=== PATIENT | female | born 1975 | race Caucasian/White ===

== ENCOUNTER 2024-12-29 08:50 | Emergency (ER) | payer OTHER, SELFPAY ==
[2024-12-29 08:58] VITALS: BP 141/90; PULSE 85; TEMP 36.4; O2SAT 100; BMI 35.4
--- OUTSIDE RECORDS SUMMARY | 2024-12-29 09:05 | XMS_ITS | Clinical Summary ---
Author Organization [facility] Address [address] [place] [address] Phone Care Team Providers Care Tandem Operator Name Role Phone Sandoval England DO Primary Care Provider Tameka Padilla LACTATION NURSE-TRUSTEE OF ESTATE Unavailable [phone] Allergies Active AllergyReactionsCriticalityNoted GpiqSwpmuzucUorwiByarGgt40/06/2024 Medications MedicationSigDispense QuantityRefillsLast FilledStart DateEnd DateStatus cholecalciferol (Vitamin D-3) 25 MCG (1000 UT) capsule Take 1 capsule (25 mcg) by mouth once daily.02/03/2023ctive hydroCHLOROthiazide (HYDRODiuril) 25 mg tablet Take 1 tablet (25 mg) by mouth once daily.Active metoprolol tartrate (Lopressor) 25 mg tablet Take 1 tablet (25 mg) by mouth 2 times a day.Active losartan (Cozaar) 100 mg tablet Take 1 tablet (100 mg) by mouth once daily.Active amLODIPine (Norvasc) 10 mg tablet Take by mouth once daily.Active Active Problems ProblemNoted DateDiagnosed DateHTN (hypertension)10/13/2023Malignant melanoma of skin of chest09/23/2023 Cancer Staging: Pathologic:Stage IIIC(pT3b, pN1a, cM0) - Signed by Jaspreet Romero MD on 10/28/2023 Social History Tobacco UseTypesPacks/DayYears UsedDateSmoking Tobacco: Every DayCigarettes Smokeless Tobacco: Never Tobacco Cessation:Ready to Q uit: Not Asked; Counseling Given: Not Answered Alcohol UseStandard Drinks/ErhpYbixawnxHma71 (1 standard drink = 0.6 oz pure alcohol)CommentsUnknownSex and Gender InformationValueDate RecordedSex Assigned at BirthNot on fileLegal MhbZqapcf71/26/2022 3:15 PM ESTGender Identity Not on fileSexual OrientationNot on file Last Filed Vital Signs Vital SignReadingTime TakenCommentsBlood Gissfcjn953/5687410/28/2023 10:32 AM EDT Zpjji348810/28/2023 10:32 AM ZPOJcxgjhumqih28.4 ??C (97.5 ??F)10/28/2023 10:32 AM EDTRespiratory Uxzo663910/28/2023 10:32 AM EDTOxygen Hjkljliaah75%10/28/2023 10:32 AM EDTInhaled Oxygen Concentration--Arbqsn11.2 kg (209 lb 14.4 oz)10/28/2023 10:32 AM QALVsxzln254.3 cm (5' 3.5 )10/13/2023 8:50 AM EDTBody Mass Index36.6 10/13/2023 8:50 AM EDT Plan of Treatment Health MaintenanceDue DateLast DoneCommentsCT Wzxdytwvgjbp01/16/1974FIT-DNA (Cologuard)1973FIT1973HIV Fjayvfuox11/16/1974Lipid Panel1973 Nlqqarahfcuid58/16/1974Skin Cancer Emzgcewbi56/16/1974MMR Vaccines (1 of 1 - Standard series)1974Diabetes Zbyovxbdb92/16/1992Hepatitis C Screening 07/17/1991Hepatitis B Vaccines (1 of 3 - 19+ 3-dose series)1992 Pneumococcal Vaccine (1 of 2 - PCV)1992Cervical Cancer Aajifrulq76/16/1995 HPV/Vvkncb0607/16/1994Pap Smear07/16/19943106Rotemjwxm64Zoster Vaccines (1 of 2)4DTaP/Tdap/Td Vaccines (2 - Td or Tdap)09/29/2023 09/28/2013Yearly Adult Fhzxnfmj39/, 12/10/2021, 12/04/2020, Additional history existsInfluenza Vaccine (#1)511/, 12/03/2021 COVID-19 Vaccine ( season)/, 2Colonoscopy olorectal Cancer Ikqitizkd55/04/2033HIB VaccinesAged OutNo longer eligible based on patient's age to complete this topicHPV VaccinesAged OutNo longer eligible based on patient's age to complete this topicHepatitis A VaccinesAged OutNo longer eligible based on patient's age to complete this topic IPV VaccinesAged OutNo longer eligible based on patient's age to complete this topicMeningococcal VaccineAged OutNo longer eligible based on patient's age to complete this topicRotavirus VaccinesAged OutNo longer eligible based on patient's age to complete this topic Insurance Advance Directives For more information, please contact: [phone] (Available ) * Full Code (Latest Code Status on File) Date ActivatedDate InactivatedComments10/13/2023 8:33 AMQuestionAnswerComments Plan of Care:* Code Status Discussion Not Completed Decision Maker:* Provider Rationale:* Patient condition does not warrant discussion Care Teams Team MemberRelationshipSpecialtyStart DateEnd Date Sandoval England DO [address] [facility] [address] [place] [address] PCP - GeneralFamily Medicine09/15/23 Tameka Padilla APRN-TRUSTEE OF ESTATE [address] [place] [address] Referring PhysicianDermatology09/15/23
--- OUTSIDE RECORDS SUMMARY | 2024-12-29 09:05 | XMS_ITS | Clinical Summary ---
Author Organization [facility] Address [address] [place] [address] Care Team Providers Care Manager Compliance Name Role Phone Sandoval England MD Primary Care Provider [phone] Allergies Active AllergyReactionsCriticalityNoted DateCommentsLatexUnkIlir lerma 12/31/2022 Medications MedicationSigDispense QuantityRefillsLast FilledStart DateEnd DateStatus amLODIPine (Norvasc) 10 MG tablet 12/16/2022ctive hydroCHLOROthiazide (HYDRODiuril) 25 MG tablet 12/16/2022ctive metoprolol tartrate (Lopressor) 25 MG tablet 12/16/2022ctive losartan (Cozaar) 100 MG tablet 12/16/2022ctive cholecalciferol (Vitamin D-3) 25 MCG (1000 UT) capsule 02/03/2023ctive traMADol (Ultram) 50 MG tablet 10/13/2023ctive GaviLyte-G 236 g solution 01/17/2023ctive triamcinolone (Kenalog) 0.1 % ointment Indications:Other atopic dermatitisApply to affected areas, up to twice a day when flared, do not use one the face, groin, or underarms, 30 day supply 454 g 310ctive triamcinolone (Kenalog) 0.1 % cream Indications:Other atopic dermatitisApply to affected areas, up to twice a day when flared, do not use one the face, groin, or underarms, 30 day supply 454 g 1105Active Active Problems ProblemNoted DateDiagnosed DateAcute aopozathpqbqs62/31/2023 Encounters DateTypeDepartmentCare BlgyXjxdlkcayql22/10/2025Telephone [facility] [address] [place] [address] Marika Langford LPN Appointment Request; Care Ndyzngnogwcq51/03/2025External Result Encounter [facility] External Department Unsolicited Rosa Cuba MD 11/03/2024External Result Encounter [facility] External Department Unsolicited Rosa Cuba MD 11/03/2024External Result Encounter [facility] External Department Unsolicited Rosa Cuba MD 11/03/2024External Result Encounter [facility] External Department Unsolicited Rosa Cuba MD 10/21/2024External Result Encounter [facility] External Department Unsolicited Rosa Cuba MD 10/21/2024External Result Encounter [facility] External Department Unsolicited Rosa Cuba MD 10/21/2024External Result Encounter [facility] External Department Unsolicited Rosa Cuba MD from Last 3 Months Family History Medical HistoryRelationNameCommentsLupusDaughterCancerFatherRelationNameStatus NnkbwjfuGnpnlynNqiaf5BoiwzectZtgnxjIxybyzucWxbzoeSfurt Social History Tobacco UseTypesPacks/DayYears UsedDateSmoking Tobacco: Every DayCigarettes Smokeless Tobacco: Never Tobacco Cessation:Ready to Q uit: Not Asked; Counseling Given: Not Answered Comments:Smokes 60 mins after waking up Alcohol UseStandard Drinks/WeekCommentsYes2 (1 standard drink = 0.6 oz pure alcohol)caffeine: 1-2 cups per day coffeeCommentsUnknownSex and Gender InformationValueDate RecordedSex Assigned at BirthNot on fileLegal SexFemale 05/15/2022 7:02 PM EDTGender IdentityNot on fileSexual OrientationNot on file Last Filed Vital Signs Vital SignReadingTime TakenCommentsBlood Vemnenxy646/7012/31/2022 9:26 AM EDT Hualz329912/17/2022 7:26 PM OJJZatkzimpeit60.7 ??C (98 ??F)12/17/2022 7:26 PM EDT Respiratory Rate--Oxygen Awtruflouo20%12/17/2022 7:26 PM EDTInhaled Oxygen Concentration--Ezhkcp91.7 kg (200 lb)01/16/2023 2:24 PM XYTNbcaaw388 cm (5' 3 ) 01/16/2023 2:24 PM ESTBody Mass Index35.43103/18/2022 2:24 PM EST Plan of Treatment DateTypeDepartmentCare Team (Latest Contact Info)Evwnadykhoy13/26/2026 2:20 PM ESTOffice Visit [facility] [address] [place] [address] Tameka Padilla APRN-COLD FOOD PACKER [address] [place] [address] Health MaintenanceDue DateLast DoneCommentsCT Shkdkxvxuclc77/16/1974Colonoscopy 1973Colorectal Cancer Jzrsxilzf78/16/1974FIT-DNA1973FIT1973 FOBT1973 0574Dwzctvyncqcpb81/16/1974Pap Smear1994Cervical Cancer Qejgkvhvb63/16/2004HPV/Ueymbb4807/17/20038676Vnfwgorlk47, 09/12/2017 Influenza Vaccine (#1), 12/03/2021 Procedures Procedure NamePriorityDate/TimeAssociated DiagnosisCommentsCT ABDOMEN PELVIS W IV MCOZRPHU17/03/2025 1:38 PM EDT ACTH, KWJOQFEpoeozl17/03/2025 11:34 AM EDT T4, DVEUFfuyvps89/03/2025 11:34 AM EDT LIZQcfmohf35/03/2025 11:34 AM EDT CORTISOL, VFDDONenouma29/03/2025 11:34 AM EDT COMPREHENSIVE METABOLIC VYZJPFgtkfts89/03/2025 11:34 AM EDT CBC WITH AUTO VSSOFLGRQCJBKaxauyg72/03/2025 11:34 AM EDT ACTH, NOXZRNJxdyxgd19/21/2025 6:24 AM EDT T4, SKDFKNWY15/21/2025 6:24 AM EDT MACNBMC2210/21/2024 6:24 AM EDT CORTISOL, RDOMGNSMD06/21/2025 6:24 AM EDT COMPREHENSIVE METABOLIC TAYDMTBWC12/21/2025 6:24 AM EDT CBC WITH AUTO DJRWMNLMBMJXPMFA74/21/2025 6:24 AM EDT BI MAMMOGRAM SCREENING FVVDICNRQRhcmxvp59/16/2018 12:00 PM EDT Encounter for gynecological examination (general) (routine) without abnormal findings Encounter for screening mammogram for malignant neoplasm of breast from Last 3 Months or Most Recently Relevant to Health Maintenance Results * CT abdomen pelvis w IV contrast (11/03/2024 1:38 PM EDT)Anatomical Region LateralityModalityBody, Pelvis, AbdomenComputed TomographySpecimen (Source) Anatomical Location / LateralityCollection Method / VolumeCollection Time Received Time11/03/2024 1:38 PM EDT Impressions 11/03/2024 1:[address] evidence of progression disease within the chest, abdomen or pelvis. ? Impression dictated by: Yuan Robb Jr., D.OMeng ??11/03/2024 1:46 PM ? Dictation Location: RADIO-PC-22 ? Transcribed By: ? PWS ?11/03/24 1346 ? Dictated By: ?Yuan RobbJr, DO ?11/03/24 1338 ? Signed By: <Electronically signed by Yuan AbreuJr nano, DO in OV> ?11/03/24 1346 Narrative 11/03/2024 1:48 PM T [facility] ?[facility] [place] ?[address] ? [place] [address] ? CT Scan Report ? Signed ? Patient: Hade,Lory A ?MR#: [id number] ?? 8 ? : 1975 ?Acct:[id number] ? Age/Sex: 49 / F ?ADM Date: 11/03/24 ? Loc: XT ?Room: ?Type: REG RCR ?? Attending Dr: Rosa Cuba MD ?? Copies to: Rosa Cuba MD ? Ordering Provider: Rosa Cuba MD ?? Date of Service: 11/03/24 ?? CT/CT abdomen pelvis w con: C43.59 - Malignant melanoma of other part of trunk ?? ([id number]) CT/CT chest w con: C43.59 - Malignant melanoma of other part of trunk ? CT CHEST, ABDOMEN AND PELVIS WITH INTRAVENOUS CONTRAST: ? CLINICAL HISTORY: Restage malignant melanoma of the chest. ? COMPARISON: CTA chest, abdomen and pelvis 12/17/2022 PET/CT 11/14/2023 ? TECHNIQUE: ??TECHNIQUE: ??Spiral images were obtained through the chest, abdomen and pelvis following the administration of IV contrast. ??This CT exam was performed using one or more following dose reduction techniques: Automated exposure control, adjustment of the mA and/or kV according to patient size, or use of iterative reconstruction technique. ? FINDINGS: ? CT chest: ? Mediastinum:Thoracic aorta appears normal in caliber. ??Pulmonary trunk appears nondilated. ??No pericardial effusion or lymphadenopathy. ??The esophagus is grossly unremarkable. ? Lungs:No consolidation pneumothorax pleural effusion or nodule. ??Mild lung scarring. ? Soft tissues/Bones: Postoperative changes involving the left axilla. ??No soft tissue mass. ??Osseous structures demonstrate degenerative change. ??Sclerosis involving the thoracic spine grossly unchanged. ? CT abdomen and pelvis: ? Organs:No enhancing liver lesion. ??Gallbladder has been removed. ??Portal vein spleen pancreas and adrenal glands appear unremarkable. ??No enhancing renal mass or hydronephrosis. ??Abdominal aorta is normal in caliber.[ ? GI: Stomach is grossly unremarkable. ??Small bowel appears nondilated. ??Colonic diverticulosis.[ ? Pelvis:[Fibroid uterus similar to the prior study. ??Urinary bladder is grossly unremarkable.] ? Peritoneum/Retroperitoneum:No free air or free fluid or lymphadenopathy.[ ? Abd wall/Bones:Abdominal wall demonstrates no acute findings. ??Osseous structures demonstrate degenerative change.[ ? CT/CT chest w con ?? Procedure Note Yuan Robb Jr., DO - 11/03/2024 [facility] [place] [address] [place] [address] CT Scan Report Signed Patient: Lory Loving AMR#: [id number] 8 : 1975Acct:[id number] Age/Sex: 49 / FADM Date: 11/03/24 Loc: XT Room:Type: [facility] RCR Attending Dr: Rosa Cuba MD Copies to: Rosa Cuba MD Ordering Provider: Rosa Cuba MD Date of Service: 11/03/24 CT/CT abdomen pelvis w con: C43.59 - Malignant melanoma of other part of trunk ([id number]) CT/CT chest w con: C43.59 - Malignant melanoma of otherpart of trunk CT CHEST, ABDOMEN AND PELVIS WITH INTRAVENOUS CONTRAST: CLINICAL HISTORY: Restage malignant melanoma of the chest. COMPARISON: CTA chest, abdomen and pelvis 12/17/2022 PET/CT 11/14/2023 TECHNIQUE: TECHNIQUE: Spiral images were obtained through the chest,abdomen and pelvis following the administration of IV contrast. This CT exam was performed using oneor more following dose reduction techniques: Automated exposure control, adjustment of the mAand/or kV according to patient size, or use of iterative reconstruction technique. FINDINGS: CT chest: Mediastinum:Thoracic aorta appears normal in caliber. Pulmonary trunkappears nondilated. No pericardial effusion or lymphadenopathy. The esophagus is grosslyunremarkable. Lungs:No consolidation pneumothorax pleural effusion or nodule. Mild lung scarring. Soft tissues/Bones: Postoperative changes involving the left axilla. Nosoft tissue mass. Osseous structures demonstrate degenerative change. Sclerosis involving thethoracic spine grossly unchanged. CT abdomen and pelvis: Organs:No enhancing liver lesion. Gallbladder has been removed. Portalvein spleen pancreas and adrenal glands appear unremarkable. No enhancing renal mass orhydronephrosis. Abdominal aorta is normal in caliber.[ GI: Stomach is grossly unremarkable. Small bowel appears nondilated.Colonic diverticulosis.[ Pelvis:[Fibroid uterus similar to the prior study. Urinary bladder isgrossly unremarkable.] Peritoneum/Retroperitoneum:No free air or free fluid or lymphadenopathy.[ Abd wall/Bones:Abdominal wall demonstrates no acute findings. Osseousstructures demonstrate degenerative change.[ CT/CT chest w con IMPRESSION: No CT evidence of progression disease within the chest, abdomen orpelvis. Impression dictated by: Yuan Robb Jr., D.OMeng 11/03/2024 1:46 PM Dictation Location: [place] [address] Transcribed By: [facility] 11/03/24 1346 Dictated By: Yuan Robb Jr, DO 11/03/24 1338 Signed By: <Electronically signed by Yuan Robb Jr, DO inOV> 11/03/24 1346 Authorizing ProviderResult TypeResult StatusRosa Cuba [facility] [place] PROCED[place]Final Result * (ABNORMAL) CBC auto differential (11/03/2024 11:34 AM EDT) Only the most recent of2 resultswithin the time period is included. ComponentValueRef RangeTest MethodAnalysis TimePerformed AtPathologist Signature WBC7.63.8 - 11.6 [CFU]/mL11/03/2024 11:50 AM [facility] C[facility] UNCORRECTED WHITE BLOOD COUNT7.63.8 - 11.6 10*3/uL11/03/2024 11:50 AM EDT [facility] CtrRBC3.623.60 - 5.00 10*6/uL11/03/2024 11:50 AM [facility] AoeLVNVWKRHNH02.4(L)11.8 - 15.4 g/dL11/03/2024 11:50 AM [facility] RuiEQSVZWROJU36.5(L)34.0 - 46.4 %11/03/2024 11:50 AM [facility] AbaHGE99.780 - 100 fL11/03/2024 11:50 AM [facility] JxuSWZ91.524.7 - 34.3 pg11/03/2024 11:50 AM [facility] VtzUTNT63.032.0 - 35.0 g/dL11/03/2024 11:50 AM [facility] CtrRED CELL DISTRIBUTION WIDTH, RDW12.711.9 - 15.3 % 11/03/2024 11:50 AM [facility] CtrPLATELET FAQLS629(H)150 - 450 10*3/uL11/03/2024 11:50 AM [facility] CtrMEAN PLATELET VOLUME, MPV6.66.3 - 10.7 fL11/03/2024 11:50 AM [facility] NEUTROPHILS, %73.4. %11/03/2024 11:50 AM [facility] LYMPHOCYTES, %18.1. %11/03/2024 11:50 AM [facility] MONOCYTE/MACROPHAGE, %5.5. %11/03/2024 11:50 AM [facility] CtrEOSINOPHILS, %2.7. %11/03/2024 11:50 AM [facility] BASOPHILS, %0.3. %11/03/2024 11:50 AM [facility] CtrNRBC0.00 - 0.5 /100{WBC}11/03/2024 11:50 AM [facility] CtrNEUTROPHILS 5.51.8 - 7.7 10*3/uL11/03/2024 11:50 AM [facility] LYMPHOCYTES1.41.00 - 4.8 10*3/uL11/03/2024 11:50 AM [facility] CtrMONOCYTES0.40.0 - 0.8 10*3/uL11/03/2024 11:50 AM [facility] CtrEOSINOPHILS0.20.0 - 0.45 10*3/uL11/03/2024 11:50 AM EDT [facility] CtrBASOPHILS0.00.0 - 0.2 10*3/uL11/03/2024 11:50 AM [facility] CtrSpecimen (Source)Anatomical Location / LateralityCollection Method / VolumeCollection TimeReceived TimeBlood (Blood) 11/03/2024 11:34 AM EDT11/03/2024 11:41 AM EDT Narrative Authorizing ProviderResult TypeResult StatusRosa Cuba MDLAB BLOOD ORDERABLES Final ResultPerforming OrganizationAddressCity/State/ZIP CodePhone Number [facility] [address] [place] [address], [facility] [address] [place] [address] * ACTH (11/03/2024 11:34 AM EDT) Only the most recent of2 resultswithin the time period is included. ComponentValueRef RangeTest MethodAnalysis TimePerformed AtPathologist Signature ADRENOCORTICOTROPIC HORMONE PL21.37.2 - 63.3 pg/mL11/04/2024 2:36 PM EDT [facility]: ACTH reference interval for samples collected between 7 and 10 AM. Performed at: ??CB - [facility] [address], [place], [place] ??[id number] Ball Mill Operator: Jeff Blevins PhD, Phone: ??[phone] Specimen (Source)Anatomical Location / LateralityCollection Method / Volume Collection TimeReceived PelwCcpyw52/03/2025 11:34 AM EDT11/03/2024 11:40 AM EDT Narrative Authorizing ProviderResult TypeResult StatusRosa Dayo Bereket ROWLEY BLOOD ORDERABLES Final ResultPerforming OrganizationAddressCity/State/ZIP CodePhone Number [address] [address], * TSH (11/03/2024 11:34 AM EDT) Only the most recent of2 resultswithin the time period is included. ComponentValueRef RangeTest MethodAnalysis TimePerformed AtPathologist Signature THYROID STIMULATING HORMONE3.210.45 - 5.33 u[iU]/mL11/03/2024 12:17 PM EDT [facility] CtrSpecimen (Source)Anatomical Location / Laterality Collection Method / VolumeCollection TimeReceived TimeOtherTopography unknown / Tfvmjyt7411/03/2024 11:34 AM EDT11/03/2024 11:41 AM EDT Narrative Authorizing ProviderResult TypeResult StatusRosa Dayo Bereket ROWLEY BLOOD ORDERABLES Final ResultPerforming OrganizationAddressCity/State/ZIP CodePhone Number [address] [address], [facility] [address] [place] [address] * T4, free (11/03/2024 11:34 AM EDT) Only the most recent of2 resultswithin the time period is included. ComponentValueRef RangeTest MethodAnalysis TimePerformed AtPathologist Signature FREE T4 (FREE THYROXINE)0.670.61 - 1.12 ng/dL11/03/2024 12:21 PM EDTFSelect [facility] CtrSpecimen (Source)Anatomical Location / LateralityCollection Method / VolumeCollection TimeReceived TimeOtherTopography unknown / Unknown 11/03/2024 11:34 AM EDT11/03/2024 11:41 AM EDT Narrative Authorizing ProviderResult TypeResult StatusRosa Dayo Bereket ROWLEY BLOOD ORDERABLES Final ResultPerforming OrganizationAddressty/State/ZIP CodePhone Number [address] [address], [facility] [address] [place] [address] * Cortisol (11/03/2024 11:34 AM EDT) Only the most recent of2 resultswithin the time period is included. ComponentValueRef RangeTest MethodAnalysis TimePerformed AtPathologist Signature CUAVLUBR44.8ug/dL11/03/2024 12:14 PM [facility] CtrComment: Reference range: ?AM 6 - 24 ug/dl PM <10 ug/dl [facility] Laboratory gallery assistant and method: CALEB UNICEL DXI, POLYCLONAL ANTIBODY CORTISOL ASSAY. Specimen (Source)Anatomical Location / LateralityCollection Method / Volume Collection TimeReceived TimeOtherTopography unknown / Tjhxymr3311/03/2024 11:34 AM EDT11/03/2024 11:41 AM EDT Narrative Authorizing ProviderResult TypeResult StatusRosa Cuba MDLAB BLOOD ORDERABLES Final ResultPerforming OrganizationAddressCity/State/ZIP CodePhone Number [facility] [address] [place] [address], [facility] [address] [place] [address] * (ABNORMAL) Comprehensive metabolic panel (11/03/2024 11:34 AM EDT) Only the most recent of2 resultswithin the time period is included. ComponentValueRef RangeTest MethodAnalysis TimePerformed AtPathologist Signature Zlarezf462(H)70 - 100 mg/dL11/03/2024 12:04 PM [facility] Comment: Random Glucose Reference Range is dependent on time and content of last meal. Glucose of more than 200 mg/dL in a nonstressed, ambulatory subject supports the diagnosis of Diabetes Mellitus. ADA recommended reference range RPY860 - 25 mg/dL11/03/2024 12:04 PM [facility] CtrCREATININE 0.620.60 - 1.20 mg/dL11/03/2024 12:04 PM [facility] ESTIMATED GFR>60. 12:04 PM [facility] OatNyrvku523 136 - 145 mmol/L11/03/2024 12:04 PM [facility] CtrPotassium, Bld4.03.5 - 5.1 mmol/L11/03/2024 12:04 PM [facility] Qxublore74604 - 107 mmol/L11/03/2024 12:04 PM [facility] Carbon Ugfzsfb16.921.0 - 31.0 mmol/L11/03/2024 12:04 PM [facility] CtrAnion Gap13.16.0 - 15.009 12:04 PM [facility] CtrCalcium9.18.6 - 10.3 mg/dL11/03/2024 12:04 PM [facility] CtrTOTAL PROTEIN7.16.4 - 8.9 g/dL11/03/2024 12:04 PM [facility] CtrALBUMIN LEVEL4.03.5 - 5.7 g/dL11/03/2024 12:04 PM [facility] CtrGLOBULIN3.1g/dL11/03/2024 12:04 PM [facility] CtrALBUMIN/GLOBULIN RATIO1.309 12:04 PM [facility] CtrBILIRUBIN,TOTAL0.40.3 - 1.0 mg/dL11/03/2024 12:04 PM T [facility] CtrASPARTATE AMINO QHYDHSRLNQA4099 - 39 U/L11/03/2024 12:04 PM [facility] CtrALANINE MEJNZRKCOGDKPOUZ802 - 52 U/L 11/03/2024 12:04 PM [facility] CtrALKALINE YXUHYKQZYBH689(H) 34 - 104 U/L11/03/2024 12:04 PM [facility] CtrCREATININE CLR CALC PCOXURGW326.4509 12:04 PM [facility] CtrSpecimen (Source)Anatomical Location / LateralityCollection Method / VolumeCollection TimeReceived TimeOtherTopography unknown / Nrzxqqd9411/03/2024 11:34 AM EDT 11/03/2024 11:41 AM EDT Narrative Authorizing ProviderResult TypeResult StatusRosa Cuba MDLAB BLOOD ORDERABLES Final ResultPerforming OrganizationAddressCity/State/ZIP CodePhone Number [facility] [address] [place] [address], [facility] [address] [place] [address] * Bilateral screening mammogram (09/15/2017 12:00 PM EDT)Anatomical Region LateralityModalityBreastBilateralMammographySpecimen (Source)Anatomical Location / LateralityCollection Method / VolumeCollection TimeReceived Time Narrative 09/15/2017 12:00 PM EDT PERFORMED AT [facility] LOCATION:[id number] Negative Procedure Note Khadar Rincon MD - 09/06/2022 PERFORMED AT [facility] LOCATION:[id number] Negative Authorizing ProviderResult TypeResult StatusBredward Rincon MDIMG BI PROCEDURES Final Result from Last 3 Months or Most Recently Relevant to Health Maintenance Insurance Care Teams Team MemberRelationshipSpecialtyStart DateEnd Date Sandoval England MD [address] [place] [address] PCP - GeneralFamily Ozmippcr30/17/23
--- NOTE | 2024-12-29 09:11 | XR_ITS ---
The [address] [address] Patient Name: OARLIA WHEATLEY MRN: [id number] date: 1975 Sex: F Assigned Patient Location: ER Current Patient Location: ER Accession/Order Number: [id number] Exam Date: 12/29/2024 09:18 Report Date: 12/29/2024 09:41 At the request of: PARISH PALOMARES MD Procedure: XR foot LT min 3V LEFT FOOT - 3 views CLINICAL DATA: Continued dorsal foot pain since dropping a bottle onto foot 2 weeks ago. COMPARISON: None AP, lateral and oblique views were obtained. There is no definite acute fracture or dislocation. A plantar calcaneal spur is seen. There is question of possible osteochondritis dissecans at the medial talar dome on the AP and oblique views. There is mild soft tissue swelling at the dorsum of the foot. XR/XR foot LT min 3V IMPRESSION: NO ACUTE BONY INJURY. Impression dictated by: Shelbie Cordon M.D. 12/29/2024 9:41 AM Dictation Location: [place] [address] Electronically authenticated by: [id number] Y Date: 12/29/2024 09:41
--- NOTE | 2024-12-29 09:12 | ED.GENADUL1 ---
HPI HPI - General Adult General Chief complaint: Extremity Problem, Nontraumatic Stated complaint: LOWER EXTREMITY PAIN Time Seen by Provider: 12/29/24 08:55 Source: patient Mode of arrival: Wheelchair History of Present Illness HPI narrative: 49-year-old female presented to the emergency department for chief complaint of left leg pain. She had dropped a heavy chemical bottle on her left foot about 2 weeks ago and since then her whole legs been hurting. She complains of pain particularly in the left thigh and she is worried about a blood clot. She has never had 1 before and is not on any blood thinners. The right leg is not hurting. Related Data Home Medications ?Medication ?Instructions ?Recorded ?Confirmed amlodipine 10 mg tablet 10 mg PO DAILY 12/29/24 12/29/24 cyclobenzaprine 10 mg tablet 10 mg PO .QHS PRN muscle spasm 12/29/24 12/29/24 hydrochlorothiazide 25 mg tablet 25 mg PO QAM 12/29/24 12/29/24 losartan 100 mg tablet 100 mg PO .QD 12/29/24 12/29/24 meloxicam 15 mg tablet 15 mg PO .QD 12/29/24 12/29/24 metoprolol tartrate 25 mg tablet 25 mg PO .QD 12/29/24 12/29/24 Previous Rx's ?Medication ?Instructions ?Recorded acetaminophen 300 mg-codeine 30 mg 1 tab PO Q6H PRN pain 5 days #20 12/29/24 tablet tabs cephalexin 500 mg capsule 500 mg PO QID 10 days #40 caps 12/29/24 ibuprofen 800 mg tablet 800 mg PO Q8H PRN pain #20 tabs 12/29/24 Allergies Allergy/AdvReac Type Severity Reaction Status Date / Time No Known Drug Allergies Allergy Verified 12/29/24 09:05 Opioid HPI Opioid Management Most Recent Opioid Data: Last Pain Scale 6 Today, 09:10 Review of Systems ROS Narrative A ten point review of systems is negative except as noted above. PFSH PFSH Social History Little interest or pleasure in doing things: not at all Feeling down, depressed, or hopeless: not at all Exam Narrative Exam Narrative: Nurses note and vital signs reviewed General:The patient appears in no apparent distress. Skin:Warm, dry, no pallor noted.There is no rash noted. Head:Normocephalic, atraumatic Eye: Normal conjunctiva, no drainage Ears, Nose, Mouth, and Throat: oral mucosa is moist. Nares patent. Cardiovascular:Regular Rate and Rhythm Respiratory:Patient is in no distress, no accessory muscle use, lungs are clear to auscultation, no wheezing, rales or rhonchi Back:non-tender GI: Soft and nontender Musculoskeletal: The left leg is examined. She has swelling in the foot and ankle and lower leg and thigh compared to the contralateral. There are no breaks in the skin. She has good range of motion of her knee. There is an area of erythema at the medial aspect of the left calf region. Neurological:A&O, normal speech Psychiatric:Cooperative Constitutional Vital Signs, click to edit/add: Last Vital Signs Temp 97.6 F 12/29/24 08:58 Pulse 85 12/29/24 08:58 Resp 16 12/29/24 08:58 BP 141/90 12/29/24 08:58 Pulse Ox 100 12/29/24 08:58 O2 Del Method Room Air 12/29/24 08:58 Course Vital Signs Vital signs: Vital Signs Temperature 97.6 F 12/29/24 08:58 Pulse Rate 85 12/29/24 08:58 Respiratory Rate 16 12/29/24 08:58 Blood Pressure 141/90 12/29/24 08:58 Pulse Oximetry 100 12/29/24 08:58 Oxygen Delivery Method Room Air 12/29/24 08:58 Temperature 97.6 F 12/29/24 08:58 Pulse Rate 85 12/29/24 08:58 Respiratory Rate 16 12/29/24 08:58 Blood Pressure 141/90 12/29/24 08:58 Pulse Oximetry 100 12/29/24 08:58 Oxygen Delivery Method Room Air 12/29/24 08:58 Medical Decision Making MDM Narrative Medical decision making narrative: Doppler shows no DVT and foot x-ray is negative. She is prescribed Keflex as well as Motrin and Tylenol 3. Treatment diagnosis and follow-up were discussed with the patient. Imaging Data Foot x-ray: Radiologist's impression: ITS Impressions Foot X-Ray 12/29/24 09:11 IMPRESSION: NO ACUTE BONY INJURY. Impression dictated by: Shelbie Cordon M.D. 12/29/2024 9:41 AM Dictation Location: [place] [address] Electronically authenticated by: [id number] Y Date: 12/29/2024 09:41 No DVT on Doppler Discharge Plan Discharge Chief Complaint: Extremity Problem, Nontraumatic Clinical Impression: Cellulitis of left leg Patient Disposition: Home, Self-Care Time of Disposition Decision: 09:50 Condition: Good Mode of Transportation: Private Vehicle Prescriptions / Home Meds: New acetaminophen-codeine 300-30 mg tablet 1 tab PO Q6H PRN (Reason: pain) 5 Days Qty: 20 0RF ibuprofen 800 mg tablet 800 mg PO Q8H PRN (Reason: pain) Qty: 20 0RF cephalexin 500 mg capsule 500 mg PO QID 10 Days Qty: 40 0RF No Action amlodipine 10 mg tablet 10 mg PO DAILY cyclobenzaprine 10 mg tablet 10 mg PO .QHS PRN (Reason: muscle spasm) meloxicam 15 mg tablet 15 mg PO .QD hydrochlorothiazide 25 mg tablet 25 mg PO QAM losartan 100 mg tablet 100 mg PO .QD metoprolol tartrate 25 mg tablet 25 mg PO .QD Print Language: Malagasy Instructions: Cellulitis (ED) Referrals: CARMEN FALK [Primary Care Provider] - 1 week
== END 2024-12-29 10:10 | disposition home or self-care (01) ==
PROVIDERS: Emergency Provider Emergency Medicine
DX: L03.116 Cellulitis of left lower limb (principal)
CPT/HCPCS: 73630; 93971; 99284